=== PATIENT | female | born 1945 | race Caucasian/White ===

== ENCOUNTER 2016-09-10 06:51 | Observation (INO) | payer OTHER ==
[2016-09-10] VITALS (9 sets, daily range): BP systolic 132–164; BP diastolic 72–91; PULSE 64–80; RESP 16–18; TEMP 96.5–98.9; O2SAT 88–98
[~2016-09-10 06:51] MED LIST: ATOR40TA49 PO; CALCTAB23 PO; CENTTAB9 PO; DILTCD120 PO; ECOT81TA2 PO; GLIP5 PO; HYDR-3533 PO; INDO50 PO; LEVO.025 PO; LISI-587 PO; VENL150T14 PO; VITA-13 PO
[2016-09-10] MEDS ORDERED: LEVO25TA4 PO (07:18)
[2016-09-10] MEDS ORDERED: HYDR-3516 PO (07:18)
[2016-09-10] MEDS ORDERED: ASPI1TAB69 PO (07:18)
[2016-09-10] MEDS ORDERED: INDO50CA PO (07:18)
[2016-09-10] MEDS ORDERED: DILT120C9 PO (07:18)
[2016-09-10] MEDS ORDERED: GLIP5TAB8 PO (07:18)
[2016-09-10] MEDS ORDERED: ATOR40TA16 PO (07:18)
[2016-09-10] MEDS ORDERED: VENL150T PO (07:18)
[2016-09-10] MEDS ORDERED: LISI20TA3 PO (07:18)
[2016-09-10] MEDS ORDERED: ONDANSETRON HCL 4 MG/2 ML VIAL IV PUSH ONE (07:30)
[2016-09-10] MEDS ORDERED: MORPHINE SULFATE 4 MG/ML INJ IV PUSH ONE (07:30)
[2016-09-10] MEDS ORDERED: SODIUM CHLORIDE 0.9% FLUSH 10 ML FLUSH IVF PRN (07:30)
--- NOTE | 2016-09-10 07:54 | PD ---
HPI Chief Complaint: Fall Time Seen by Provider: 07:12 Travel History International Travel<30 days: No Contact w/Intl Traveler<30days: No Traveled to known affect area: No History of Present Illness HPI Patient is a 71 year old female who comes in after a fall last night complaining of pain to her right arm. She says she was in the kitchen getting a drink from the refrigerator and this is the last thing she remembers until she was on the ground. Per her , he heard her fall and immediately call out for help. She says she was feeling like her normal self prior to the event. She denies chest pain or SOB. She complains of severe pain to her entire right arm. She also reports hitting her face and having blood coming from her mouth and nose. 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) Hiatal Hernia: No Hypertension: Yes Immune Disorder: No Implanted Vascular Access Dvce: No Medical other: Yes (SKIN BREAKOUT ON ARMS) Musculoskeletal: Yes (ARTHRITIS) Neurologic: No Psychiatric: Yes (DEPRESSION) Reproductive: No Respiratory: No Immunizations Current: No Radiation Therapy: Yes Thyroid Disease: Yes (HYPOTHYROID) ?: Not Past Surgical History Abdominal Surgery: No AICD: No Body Medical Devices: LUMBAR HARDWARE Cardiac Surgery: No Ear Surgery: No Endocrine Surgery: No Eye Surgery: No Genitourinary Surgery: No Gynecologic Surgery: Yes (HYSTERECTOMY) Hysterectomy: Yes Joint Replacement: No Neurologic Surgery: Yes (LUMBAR FUSION) Oral Surgery: No Pacemaker: No Thoracic Surgery: No Other Surgery: Yes (right lumpectomy) Social History Alcohol Use: No Tobacco Use: Yes (1 PPD) Substance Use: No Allergies-Medications (Allergen,Severity, Reaction): Coded Allergies: Erythromycin (Verified Allergy, Severe, NAUSEA/VOMITING, 09/10/16) Reported Meds & Prescriptions Reported Meds & Active Scripts Active Reported Venlafaxine ER 24 HR (Venlafaxine HCl) 150 Mg Tab 150 Mg PO DAILY Lisinopril-Hctz 20-25 Mg Tab 1 Tab PO DAILY Levothyroxine (Levothyroxine Sodium) 25 Mcg Tab 25 Mcg PO DAILY Indomethacin 50 Mg Cap 50 Mg PO TID PRN Take with food, milk, or antacids to decrease stomach adverse effects. Hydrocodone-Acetaminophen 5-325 mg Tab 1 Tab PO Q4H PRN Glipizide 5 Mg Tab 2.5 Mg PO DAILY Take 30 minutes before a meal Diltiazem ER 12 HR (Diltiazem HCl) 120 Mg Caper 120 Mg PO DAILY NEB Atorvastatin (Atorvastatin Calcium) 40 Mg Tab 40 Mg PO HS Aspirin 81 Mg Tabdr 81 Mg PO DAILY Review of Systems Except as stated in HPI: all other systems reviewed are Neg General / Constitutional: No: Fever, Chills Eyes: No: Blurred Vision HENT: No: Headaches, Lightheadedness Cardiovascular: No: Chest Pain or Discomfort Respiratory: No: Shortness of Breath Gastrointestinal: No: Nausea, Vomiting, Abdominal Pain Musculoskeletal: Positive: Pain Skin: No Rash, No Change in Pigmentation Neurologic: Positive: Syncope, No: Weakness, Dizziness Physical Exam Narrative GENERAL: Awake and alert, no acute distress. SKIN: Focused skin assessment warm/dry. Abrasion to the right side of the nose. HEAD: Atraumatic. Normocephalic. EYES: Pupils equal and round. No scleral icterus. Extraocular movements intact. ENT: No septal hematoma. Mucous membranes pink and moist. NECK: Trachea midline. No JVD. No cervical spine tenderness. CARDIOVASCULAR: Regular rate and rhythm. No murmur appreciated. RESPIRATORY: No accessory muscle use. Clear to auscultation. Breath sounds equal bilaterally. GASTROINTESTINAL: Abdomen soft, non-tender, nondistended. MUSCULOSKELETAL: No obvious deformities. No clubbing. No cyanosis. 1+ edema bilateral lower extremities. Tender to palpation of the right shoulder, humerus , elbow, wrist. She is unwilling to move the right arm secondary to pain. Radial pulse and sensation intact. NEUROLOGICAL: Awake and alert. No obvious cranial nerve deficits. Motor grossly within normal limits. Normal speech. PSYCHIATRIC: Appropriate mood and affect; insight and judgment normal. Data Data Last Documented VS Vital Signs Date Time Temp Pulse Resp B/P Pulse Ox O2 Delivery O2 Flow Rate FiO2 09/10/16 09:03 74 18 156/76 96 Room Air 09/10/16 06:55 97.9 Orders Electrocardiogram (09/10/16 07:21) Complete Blood Count With Diff (09/10/16 07:21) Comprehensive Metabolic Panel (09/10/16 07:21) Troponin I (09/10/16 07:21) Act Partial Throm Time (Ptt) (09/10/16 07:21) Prothrombin Time / Inr (Pt) (09/10/16 07:21) Chest, Single Ap (09/10/16 07:21) Ct Brain W/O Iv Contrast(Rout) (09/10/16 07:21) Ct Cerv Spine W/O Contrast (09/10/16 07:21) Ecg Monitoring (09/10/16 07:21) Iv Access Insert/Monitor (09/10/16 07:21) Oximetry (09/10/16 07:21) Sodium Chloride 0.9% Flush (Ns Flush) (09/10/16 07:30) Wrist, Complete ([id number]) (09/10/16 ) Morphine Inj (Morphine Inj) (09/10/16 07:30) Ondansetron Inj (Zofran Inj) (09/10/16 07:30) Support Splint (09/10/16 07:59) Shoulder, Limited(2vws) (09/10/16 ) Elbow, One View (09/10/16 ) Mandatory Outpatient Referral (09/10/16 09:56) Consult Orthopedic (09/10/16 ) (Hub Use Only)Inp Phy Cons/Ref (09/10/16 ) Place In Observation (09/10/16 ) Vital Signs (Adult) Q4H (09/10/16 10:52) Activity Oob With Assistance (09/10/16 10:52) Bedside Glucose GRACIELA.AC&HS (09/10/16 10:52) Restaurant Area Manager / Telemetry .CONTINUOUS (09/10/16 10:52) Diet 1800 Ada Cons Carb (09/10/16 Lunch) Sodium Chloride 0.9% Flush (Ns Flush) (09/10/16 11:00) Sodium Chloride 0.9% Flush (Ns Flush) (09/10/16 21:00) Ondansetron Inj (Zofran Inj) (09/10/16 11:00) Comprehensive Metabolic Panel (09/11/16 06:00) Complete Blood Count With Diff (09/11/16 06:00) Pt Request For Service (09/10/16 10:52) Ot Request For Service (09/10/16 10:52) Scd Bilateral/Knee High GRACIELA.BID (09/10/16 10:52) Acetamin-Hydrocod 325-5 Mg (Gregory 5-325 (09/10/16 11:00) Acetamin-Hydrocod 325-7.5 Mg (Gregory 7.5 (09/10/16 11:00) Naloxone Inj (Narcan Inj) (09/10/16 11:00) Blood Glucose Goal (Criteria) (09/10/16 10:55) Hypoglycemia 70 Mg/Dl Or < (09/10/16 10:55) Notify Dr: Other (09/10/16 10:55) Dextrose 50% In Emma (Vial) Inj (D50w (Vi (09/10/16 11:00) Glucagon Inj (Glucagon Inj) (09/10/16 11:00) Insulin Aspart Supplemtl Scale (Novolog (09/10/16 11:00) Ct Shoulder W/O Contrast (09/10/16 ) Us Carotid Arteries Comp Bilat (09/10/16 ) Orthostatic Blood Pressure (09/10/16 10:55) Admit Order (Ed Use Only) (09/10/16 ) Labs Laboratory Tests Test 09/10/16 08:06 White Blood Count 13.4 TH/MM3 Red Blood Count 4.10 MIL/MM3 Hemoglobin 11.9 GM/DL Hematocrit 35.4 % Mean Corpuscular Volume 86.4 FL Mean Corpuscular Hemoglobin 29.0 PG Mean Corpuscular Hemoglobin 33.5 % Concent Red Cell Distribution Width 16.2 % Platelet Count 140 TH/MM3 Mean Platelet Volume 8.5 FL Neutrophils (%) (Auto) 92.2 % Lymphocytes (%) (Auto) 4.5 % Monocytes (%) (Auto) 3.1 % Eosinophils (%) (Auto) 0.0 % Basophils (%) (Auto) 0.2 % Neutrophils # (Auto) 12.4 TH/MM3 Lymphocytes # (Auto) 0.6 TH/MM3 Monocytes # (Auto) 0.4 TH/MM3 Eosinophils # (Auto) 0.0 TH/MM3 Basophils # (Auto) 0.0 TH/MM3 CBC Comment DIFF FINAL Differential Comment Prothrombin Time 10.6 SEC Prothromb Time International 1.0 RATIO Ratio Activated Partial 24.4 SEC Thromboplast Time Sodium Level 140 MEQ/L Potassium Level 3.6 MEQ/L Chloride Level 107 MEQ/L Carbon Dioxide Level 25.5 MEQ/L Anion Gap 8 MEQ/L Blood Urea Nitrogen 14 MG/DL Creatinine 0.95 MG/DL Estimat Glomerular Filtration 58 ML/MIN Rate Random Glucose 167 MG/DL Calcium Level 8.7 MG/DL Total Bilirubin 0.5 MG/DL Aspartate Amino Transf 20 U/L (AST/SGOT) Alanine Aminotransferase 20 U/L (ALT/SGPT) Alkaline Phosphatase 84 U/L Troponin I LESS THAN 0.02 NG/ML Total Protein 7.3 GM/DL Albumin 3.3 GM/DL [facility] Medical Decision Making Medical Screen Exam Complete: Yes Emergency Medical Condition: Yes Medical Record Reviewed: Yes Interpretation(s) ECG shows normal sinus rhythm at 78 with frequent PVCs. No ST elevation or depression. Differential Diagnosis Humeral fracture versus elbow fracture versus syncope versus electrolyte abnormality versus ACS Narrative Course Patient is a 71-year-old female who comes in after a fall. She is unsure why she fell, this is questionable syncope. Exam shows no neurologic abnormalities , patient is alert and oriented 4. She has severe tenderness to her right shoulder. IV established, labs sent, patient connected to the ekg monitor tech. ECG shows frequent PVCs, no other signs of ischemia or abnormalities. Labs show a white blood cell count of 13.4, other labs are within normal limits. CT head performed shows atrophy, read as possible normal pressure hydrocephalus. Patient denies any issues of incontinence or confusion. This is her second fall in the past 3 months. Symptoms not suggestive of NPH. XR of the shoulder shows fracture humerus. Given pain medicine, arm placed in a sling. Patient to be admitted for further management. Ortho paged, suggests CT shoulder and will manage from there. Likely outpatient surgery vs no intervention. Diagnosis Primary Impression: Humeral fracture Qualified Code: S42.294A - Other closed nondisplaced fracture of proximal end of right humerus, initial encounter Additional Impression: Syncope Qualified Code: R55 - Syncope, unspecified syncope type Admitting Information Admitting Physician Requests: Admit Patient Instructions: General Instructions Condition: Stable Leonarda Costa MD September 10, 2016 07:54
--- NOTE | 2016-09-10 08:09 | RADHPO ---
EXAM DATE/TIME: 09/10/2016 07:40 [facility] COMPARISON: No previous studies available for comparison. INDICATIONS : Fall, right wrist pain. MEDICAL HISTORY : None. SURGICAL HISTORY : None. ENCOUNTER: Initial ACUITY: 1 day PAIN SCORE: 5/10 LOCATION: Right wrist FINDINGS: Three views of the right wrist demonstrate no fracture or dislocation. Mineralization is decreased. T here is no significant arthropathy. No soft tissue abnormality or radiopaque foreign body is identifi ed. CONCLUSION: Undermineralized bones. No fracture is identified. Donta Mcgowan MD on September 10, 2016 at 8:06 Board Certified Radiologist. This report was verified electronically.
--- NOTE | 2016-09-10 08:10 | RADHPO ---
EXAM DATE/TIME: 09/10/2016 07:45 [facility] COMPARISON: No previous studies available for comparison. INDICATIONS : Fall, right shoulder pain. MEDICAL HISTORY : None. SURGICAL HISTORY : None. ENCOUNTER: Initial ACUITY: 1 day PAIN SCORE: 10/10 LOCATION: Right shoulder FINDINGS: 2 views of the right shoulder demonstrate a multipart fracture of the proximal humerus extending prim arily through the surgical neck. Fracture fragments are displaced. Fracture may extend into the gleno humeral joint. Acromioclavicular joint is intact. No soft tissue abnormality is seen. No acute right chest abnormality is identified. CONCLUSION: Multipart mildly displaced fracture of the right proximal humerus. Donta Mcgowan MD on September 10, 2016 at 8:08 Board Certified Radiologist. This report was verified electronically.
[2016-09-10 08:14] LABS: AUTOMATED NEUTROPHIL # 12.4 TH/MM3 (1.8-7.7); BASOPHIL % 0.2 % (0.0-2.0); HEMATOCRIT 35.4 % (35.0-46.0); HEMO FLAGS DIFF FINAL; LYMPH % 4.5 % (9.0-44.0); LYMPHOCYTE # 0.6 TH/MM3 (1.0-4.8); MEAN CELL VOLUME 86.4 FL (80.0-100.0); MEAN CORPUSCULAR HGB CONC 33.5 % (32.0-36.0); MONO % 3.1 % (0.0-8.0); NEUT % 92.2 % (16.0-70.0); PLATELET COUNT 140 TH/MM3 (150-450); RED CELL DISTRIBUTION WIDTH 16.2 % (11.6-17.2); WHITE BLOOD COUNT 13.4 TH/MM3 (4.0-11.0)
--- NOTE | 2016-09-10 08:15 | RADHPO ---
EXAM DATE/TIME: 09/10/2016 07:39 [facility] COMPARISON: CHEST SINGLE AP, January 15, 2016, 0:39. INDICATIONS : Fall, chest pain. MEDICAL HISTORY : None. SURGICAL HISTORY : None. ENCOUNTER: Initial ACUITY: 1 day PAIN SCORE: 1/10 LOCATION: Bilateral chest FINDINGS: Portable AP view of the chest demonstrates a normal-sized cardiac silhouette. No effusion, consolidat ion, or pneumothorax is visualized. The bones and soft tissues demonstrate no acute abnormality. CONCLUSION: No acute cardiopulmonary abnormality is identified. Donta Mcgowan MD on September 10, 2016 at 8:13 Board Certified Radiologist. This report was verified electronically.
--- NOTE | 2016-09-10 08:16 | RADHPO ---
EXAM DATE/TIME: 09/10/2016 07:46 [facility] COMPARISON: No previous studies available for comparison. INDICATIONS : Fall, right arm/shoulder pain. MEDICAL HISTORY : None. SURGICAL HISTORY : None. ENCOUNTER: Initial ACUITY: 1 day PAIN SCORE: 5/10 LOCATION: Right elbow to shoulder FINDINGS: 2 oblique views of the right elbow demonstrate no fracture or dislocation. The present of a joint eff usion cannot be assessed. No soft tissue abnormality or radiopaque foreign body is identified. CONCLUSION: No acute right elbow abnormality is identified on this two-view examination. If clinical suspicion re timur for an acute elbow abnormality consider standard 4 view examination. Donta Mcgowan MD on September 10, 2016 at 8:13 Board Certified Radiologist. This report was verified electronically.
[2016-09-10 08:22] LABS: CHLORIDE 107 MEQ/L (98-107); POTASSIUM 3.6 MEQ/L (3.5-5.1); SODIUM (NA) 140 MEQ/L (136-145)
[2016-09-10 08:25] LABS: ANION GAP 8 MEQ/L (5-15); BICARBONATE 25.5 MEQ/L (21.0-32.0); BLOOD UREA NITROGEN 14 MG/DL (7-18)
[2016-09-10 08:26] LABS: APTT (PATIENT) 24.4 SEC (24.3-30.1); PROTHROMBIN TIME - PATIENT 10.6 SEC (9.8-11.6)
[2016-09-10 08:28] LABS: ALT (GPT) 20 U/L (10-53); AST (GOT) 20 U/L (15-37); GLOMERULAR FILTRATION RATE 58 ML/MIN (>89)
[2016-09-10 08:29] LABS: TOTAL BILIRUBIN ADULT 0.5 MG/DL (0.2-1.0)
[2016-09-10 08:31] LABS: ALKALINE PHOSPHATASE 84 U/L (45-117)
--- NOTE | 2016-09-10 08:52 | RADHPO ---
EXAM DATE/TIME: 09/10/2016 08:13 [facility] COMPARISON: No previous studies available for comparison. INDICATIONS : Fell last night. Right sided pain. RADIATION DOSE: 65.76 CTDIvol (mGy) MEDICAL HISTORY : Hypothyroidism. Carcinoma, breast. Hypertension.Diabetes SURGICAL HISTORY : Hysterectomy. Right lumpectomy. Orthopedic surgery. ENCOUNTER: Initial ACUITY: 2 days PAIN SCALE: 8/10 LOCATION: Right cranial TECHNIQUE: Multiple contiguous axial images were obtained of the head. Using automated exposure control and adj ustment of the mA and/or kV according to patient size, radiation dose was kept as low as reasonably a chievable to obtain optimal diagnostic quality images. FINDINGS: CEREBRUM: Ventricular prominence somewhat out of proportion to the degree of cortical atrophy.. No evidence of midline shift, mass lesion, hemorrhage or acute infarction. No extra-axial fluid collections are se en. POSTERIOR FOSSA: The cerebellum and brainstem are intact. The 4th ventricle is midline. The cerebellopontine angle i s unremarkable. EXTRACRANIAL: The visualized portion of the orbits is intact. SKULL: The calvaria is intact. No evidence of skull fracture. CONCLUSION: Disproportionate ventricular prominence relative to the degree of cortical atrophy. In the appropriat e clinical setting, findings could be indicative of normal pressure hydrocephalus. Otherwise negative with no acute intracranial process, trauma or fracture. Rodrigo Granados MD on September 10, 2016 at 8:48 Board Certified Radiologist. This report was verified electronically.
--- NOTE | 2016-09-10 09:13 | RADHPO ---
EXAM DATE/TIME: 09/10/2016 08:13 [facility] COMPARISON: CT CERVICAL SPINE W/O CONTRAST, January 16, 2016, 16:53. INDICATIONS : Fell last night. Right sided pain. RADIATION DOSE: 25.91 CTDIvol (mGy) MEDICAL HISTORY : Hypothyroidism. Hypertension. Carcinoma, breast Diabetes. SURGICAL HISTORY : Hysterectomy. Right lumpectomy. Orthopedic surgery. ENCOUNTER: Initial ACUITY: 2 days PAIN SCALE: 8/10 LOCATION: Right neck TECHNIQUE: Volumetric scanning of the cervical spine was performed. Multiplanar reconstructions in the sagittal, coronal and oblique axial planes were performed. Using automated exposure control and adjustment o f the mA and/or kV according to patient size, radiation dose was kept as low as reasonably achievable to obtain optimal diagnostic quality images. FINDINGS: The sagittal reconstructions demonstrate normal alignment and normal prevertebral soft tissues. The d ens is intact and there is a normal atlantoaxial relationship. The axial images demonstrate that the vertebral bodies and posterior elements are intact. The soft ti ssues are within normal limits. There is no evidence of acute fracture or malalignment. CONCLUSION: Negative trauma CT. Joseph Randle MD on September 10, 2016 at 9:08 Board Certified Radiologist. This report was verified electronically.
[2016-09-10] MEDS ORDERED: NORC5TAB PO (09:30)
[2016-09-10] MEDS ORDERED: NALOXONE HCL 0.4 MG/ML AMP IV PRN (11:00)
[2016-09-10] MEDS ORDERED: ONDANSETRON HCL 4 MG/2 ML VIAL IVP PRN (11:00)
[2016-09-10] MEDS ORDERED: GLUCAGON 1 MG/ML VIAL OTHER PRN (11:00)
[2016-09-10] MEDS ORDERED: DEXTROSE 50% IN WATER 50 ML VIAL(D50) IV PRN (11:00)
[2016-09-10] MEDS: INSULIN ASPART SUPPLEMENTAL SCALE SQ SCH ×3 (11:00→21:00)
[2016-09-10] MEDS ORDERED: SODIUM CHLORIDE 0.9% FLUSH 10 ML FLUSH IV FLUSH PRN (11:00)
--- NOTE | 2016-09-10 11:34 | RADHPO ---
EXAM DATE/TIME: 09/10/2016 11:11 [facility] COMPARISON: SHOULDER RIGHT LTD (2VWS), September 10, 2016, 7:45. INDICATIONS : Abnormal xray. Acute fracture with pain and swelling.. RADIATION DOSE: 31.30 CTDIvol (mGy) MEDICAL HISTORY : Hypothyroidism. Hypertension. Carcinoma, breast. Diabetes. SURGICAL HISTORY : Hysterectomy. Right lumpectomy ENCOUNTER: Initial ACUITY: 2 days PAIN SCALE: 6/10 LOCATION: Right shoulder TECHNIQUE: Volumetric scanning of the shoulder was performed. Using automated exposure control and adjustment o f the mA and/or kV according to patient size, radiation dose was kept as low as reasonably achievable to obtain optimal diagnostic quality images. FINDINGS: Again noted is a moderately comminuted mildly impacted fracture deformity of the right humeral h ead and neck. There is minimal distraction of the fracture fragments with no significant angulation. There is surrounding soft tissue swelling. The glenoid is intact. The acromioclavicular joint is int act as well. The visualized portions of the ribs are intact. CONCLUSION: Right humeral head and neck fracture. Joseph Randle MD on September 10, 2016 at 11:29 Board Certified Radiologist. This report was verified electronically.
[2016-09-10] MEDS: ACETAMINOPHEN/HYDROcodone 325 MG/5 MG TAB PO PRN (11:46)
[2016-09-10] MEDS ORDERED: ACETAMINOPHEN/HYDROcodone 325 MG/7.5 MG TAB PO PRN (12:15)
--- NOTE | 2016-09-10 14:38 | EKG ---
Date Performed: 09/10/2016 Time Performed: 07:26:02 PTAGE: 71 years EKG: Sinus rhythm with frequent PVCs Patient is no longer in atrial fibrillation compared to prior tracing Abnormal EC G PREVIOUS TRACING : 01/16/2016 00.05 DOCTOR: Holland Nova Interpretating Date/Time 09/10/2016 14:38:43
--- NOTE | 2016-09-10 15:09 | HHI.HP ---
[facility] Savannah Johnson Do, MD Admission Diagnosis Syncope, shoulder fracture Diagnoses: (1) Syncope Diagnosis: Principal (2) Humeral fracture Diagnosis: Principal Travel History International Travel<30 Days: No Contact w/Intl Traveler <30 Da: No Traveled to Known Affected Are: No History of Present Illness Mrs. Ricardo is a 71 year old female. She is brought to the emergency department today secondary to experiencing a fall in which she sustained a right humerus fracture. The falls seem secondary to syncope. She reports that she got up to get some food out of the fridge felt dizzy and then fell. Orthopedic surgeon reviewed the images of fracture and inpatient repair is not planned acutely at this time. She is here for monitoring overnight and syncopal workup. Pain is controlled and seen in the ER. No other complaints. Her past history includes diabetes mellitus type 2, hypertension, A. fib, and a history of cholangiocarcinoma. Hyperlipidemia, anxiety, depression, and breast cancer in 2009 also exist. Past surgeries aren't able breast surgery in 2009, carpal tunnel in 1998, and low back surgery (fusion) in 1986. She is a smoker but without alcohol or drug abuse. Review of Systems Constitutional: DENIES: Fatigue, Fever, Chills Eyes: DENIES: Blurred vision, Diplopia Ears, nose, mouth, throat: DENIES: Hearing loss, Vertigo Respiratory: DENIES: Cough, Wheezing, Shortness of breath Cardiovascular: COMPLAINS OF: Syncope, DENIES: Chest pain, Palpitations Gastrointestinal: DENIES: Abdominal pain, Black stools, Bloody stools Musculoskeletal: COMPLAINS OF: Joint pain, DENIES: Muscle aches Integumentary: DENIES: Abnormal pigmentation Hematologic/lymphatic: DENIES: Bruising Immunologic/allergic: DENIES: Eczema Neurologic: DENIES: Abnormal gait Psychiatric: DENIES: Anxiety, Confusion Past Family Social History Past Medical History Diabetes mellitus type 2 Chronic low back pain Hypertension Hyperlipidemia Anxiety Depression Breast cancer history History of cholangiocarcinoma Past Surgical History Breast cancer surgery Carpal tunnel surgery Lower back spinal fusion Reported Medications Reported Meds & Active Scripts Active Reported Venlafaxine ER 24 HR (Venlafaxine HCl) 150 Mg Tab 150 Mg PO DAILY Lisinopril-Hctz 20-25 Mg Tab 1 Tab PO DAILY Levothyroxine (Levothyroxine Sodium) 25 Mcg Tab 25 Mcg PO DAILY Indomethacin 50 Mg Cap 50 Mg PO TID PRN Take with food, milk, or antacids to decrease stomach adverse effects. Hydrocodone-Acetaminophen 5-325 mg Tab 1 Tab PO Q4H PRN Glipizide 5 Mg Tab 2.5 Mg PO DAILY Take 30 minutes before a meal Diltiazem ER 12 HR (Diltiazem HCl) 120 Mg Caper 120 Mg PO DAILY NEB Atorvastatin (Atorvastatin Calcium) 40 Mg Tab 40 Mg PO HS Aspirin 81 Mg Tabdr 81 Mg PO DAILY Allergies: Coded Allergies: Erythromycin (Verified Allergy, Severe, NAUSEA/VOMITING, 09/10/16) Active Ordered Medications Administered Medications Medications (Trade) Dose Ordered Sig/Christian Route PRN Reason Start Time Stop Time Status Last Admin Dose Admin Acetaminophen/ Hydrocodone Bitart ([place] 5-325 Mg) 1 tab Q4H PRN PO PAIN SCALE 3 TO 5 09/10/16 11:00 09/10/16 11:46 Family History Skin cancer Social History No alcohol use No drug abuse Nicotine use Physical Exam Vital Signs Vital Signs Date Time Temp Pulse Resp B/P Pulse Ox O2 Delivery O2 Flow Rate FiO2 09/10/16 13:09 96.5 69 18 158/91 94 09/10/16 13:00 64 09/10/16 12:34 18 09/10/16 12:00 73 18 164/76 98 Room Air 09/10/16 09:03 74 18 156/76 96 Room Air 09/10/16 08:06 96 Room Air 09/10/16 06:55 97.9 76 16 141/72 96 Physical Exam GENERAL: This is a well-nourished, well-developed patient, in no apparent distress. SKIN: No rashes, ecchymoses or lesions. Cool and dry. HEAD: Atraumatic. Normocephalic. No temporal or scalp tenderness. EYES: Pupils equal round and reactive. Extraocular motions intact. No scleral icterus. No injection or drainage. ENT: Nose without bleeding, purulent drainage or septal hematoma. Throat without erythema, tonsillar hypertrophy or exudate. Uvula midline. Airway patent. NECK: Trachea midline. No JVD or lymphadenopathy. Supple, nontender, no meningeal signs. CARDIOVASCULAR: Regular rate and rhythm without murmurs, gallops, or rubs. RESPIRATORY: Clear to auscultation. Breath sounds equal bilaterally. No wheezes , rales, or rhonchi. GASTROINTESTINAL: Abdomen soft, non-tender, nondistended. No hepato-splenomegaly , or palpable masses. No guarding. MUSCULOSKELETAL: Extremities without clubbing, cyanosis, or edema. No joint tenderness, effusion, or edema noted. No calf tenderness. Negative Homans sign bilaterally. NEUROLOGICAL: Awake and alert. Cranial nerves II through XII intact. Motor and sensory grossly within normal limits. Five out of 5 muscle strength in all muscle groups. Normal speech. Laboratory Laboratory Tests Test 09/10/16 08:06 White Blood Count 13.4 Red Blood Count 4.10 Hemoglobin 11.9 Hematocrit 35.4 Mean Corpuscular Volume 86.4 Mean Corpuscular Hemoglobin 29.0 Mean Corpuscular Hemoglobin 33.5 Concent Red Cell Distribution Width 16.2 Platelet Count 140 Mean Platelet Volume 8.5 Neutrophils (%) (Auto) 92.2 Lymphocytes (%) (Auto) 4.5 Monocytes (%) (Auto) 3.1 Eosinophils (%) (Auto) 0.0 Basophils (%) (Auto) 0.2 Neutrophils # (Auto) 12.4 Lymphocytes # (Auto) 0.6 Monocytes # (Auto) 0.4 Eosinophils # (Auto) 0.0 Basophils # (Auto) 0.0 CBC Comment DIFF FINAL Differential Comment Prothrombin Time 10.6 Prothromb Time International 1.0 Ratio Activated Partial 24.4 Thromboplast Time Sodium Level 140 Potassium Level 3.6 Chloride Level 107 Carbon Dioxide Level 25.5 Anion Gap 8 Blood Urea Nitrogen 14 Creatinine 0.95 Estimat Glomerular Filtration 58 Rate Random Glucose 167 Calcium Level 8.7 Total Bilirubin 0.5 Aspartate Amino Transf 20 (AST/SGOT) Alanine Aminotransferase 20 (ALT/SGPT) Alkaline Phosphatase 84 Troponin I LESS THAN 0.02 Total Protein 7.3 Albumin 3.3 Result Diagram: 09/10/1680509/10/16805 Imaging Last Impressions Head CT 09/10/16 0721 Signed Impressions: Service Date/Time: Saturday, September 10, 2016 08:13 - CONCLUSION: Disproportionate ventricular prominence relative to the degree of cortical atrophy. In the appropriate clinical setting, findings could be indicative of normal pressure hydrocephalus. Otherwise negative with no acute intracranial process, trauma or fracture. Rodrigo Granados MD Chest X-Ray 09/10/16720 Signed Impressions: Service Date/Time: Saturday, September 10, 2016 07:39 - CONCLUSION: No acute cardiopulmonary abnormality is identified. Donta Mcgowan MD Cervical Spine CT 09/10/16720 Signed Impressions: Service Date/Time: Saturday, September 10, 2016 08:13 - CONCLUSION: Negative trauma CT. Joseph Randle MD Wrist X-Ray 09/10/16 Signed Impressions: Service Date/Time: Saturday, September 10, 2016 07:40 - CONCLUSION: Undermineralized bones. No fracture is identified. Donta Mcgowan MD Upper Extremity CT 09/10/16 Signed Impressions: Service Date/Time: Saturday, September 10, 2016 11:11 - CONCLUSION: Right humeral head and neck fracture. Joseph Randle MD Shoulder X-Ray 09/10/16 Signed Impressions: Service Date/Time: Saturday, September 10, 2016 07:45 - CONCLUSION: Multipart mildly displaced fracture of the right proximal humerus. Donta Mcgowan MD Elbow X-Ray 09/10/16 Signed Impressions: Service Date/Time: Saturday, September 10, 2016 07:46 - CONCLUSION: No acute right elbow abnormality is identified on this two-view examination. If clinical suspicion remains for an acute elbow abnormality consider standard 4 view examination. Donta Mcgowan MD Assessment and Plan Problem List: (1) Humeral fracture ICD Code: S42.309A Status: Acute (2) Syncope ICD Code: R55 Status: Acute (3) Hypertension ICD Code: I10 Status: Acute (4) Paroxysmal atrial fibrillation ICD Code: I48.0 Status: Acute (5) Chest pain ICD Code: R07.9 Status: Acute (6) Pericardial effusion ICD Code: I31.3 Status: Acute (7) Cholangiocarcinoma ICD Code: C22.1 Status: Acute Assessment and Plan Assessment and plan 71-year-old female admitted with syncope and a right humerus fracture Right humerus fracture Ortho surgeon consulted No immediate plan for acute surgery Follow Ortho surgeon as an outpatient Syncope Evaluate bilateral carotid arteries with ultrasound Orthostatic hypotension check Following telemetry Diabetes mellitus type 2 Diabetic diet Follow blood sugars Insulin sliding scale Hypertension Continue home blood pressure treatments Follow blood pressure Adjust if needed Hyperlipidemia Continue current treatment Follow us an outpatient DVT prophylaxis SCDs Avoid blood thinners right now secondary to acute injury Problem Qualifiers (1) Syncope: Qualified Code: R55 - Syncope, unspecified syncope type (2) Humeral fracture: Qualified Code: S42.294A - Other closed nondisplaced fracture of proximal end of right humerus, initial encounter Juarez Gandhi MD September 10, 2016 3:09 pm
--- NOTE | 2016-09-10 17:03 | RADHPO ---
EXAM DATE/TIME: 09/10/2016 15:37 [place] COMPARISON: No previous studies available for comparison. INDICATIONS : Syncope. MEDICAL HISTORY : Hypercholesterolemia. Hypertension. Carcinoma, breast. Diverticulosis. Hypothyroidism. Arthritis. Lila betes type 2. SURGICAL HISTORY : Hysterectomy. Lumbar fusion. Right lumpectomy. ENCOUNTER: Initial ACUITY: 1 day PAIN SCORE: 6/10 LOCATION: Bilateral neck PEAK SYSTOLIC VELOCITIES (cm/sec): ICA/CCA RATIO: Right: 0.7 Left: 0.9 ICA: Right: 84 Left: 92 CCA: Right: 124 Left: 102 ECA: Right: 97 Left: 84 VERTEBRAL: Right: 53 antegrade Left: 72 antegrade Elevated flow velocities and ICA/CCA ratios have been found to correlate with increased degrees of vessel stenosis, calculated as percentage of diameter relative to a normal segment of distal ICA/CCA FINDINGS: RIGHT CAROTID: No significant stenosis is visualized. Minimal plaque is present. The waveforms are within normal vogel its. LEFT CAROTID: No significant stenosis is visualized. Minimal plaque is present. The waveforms are within normal li mits. VERTEBRAL ARTERIES: Antegrade flow is seen in both vertebral arteries. MISCELLANEOUS: There is a complex cystic structure in the left lobe of the thyroid gland. This measures 2.3 x 2.2 x 2.6 cm. CONCLUSION: Minimal plaque with no evidence of stenosis. Cystic nodule in the left lobe of the th yroid. Joseph Randle MD on September 10, 2016 at 16:59 Board Certified Radiologist. This report was verified electronically.
--- NOTE | 2016-09-10 18:25 | PD.CONS ---
cc: Wilfred Kelley MD [facility] Service Orthopedic Surgeons Consult Requested By Dr. Costa Reason for Consult right proximal humerus fracture Primary Care Physician Savannah Johnson Do, MD Admission Diagnosis Syncope, shoulder fracture Diagnoses: (1) Humeral fracture (2) Syncope (3) Hypertension (4) Paroxysmal atrial fibrillation (5) Chest pain (6) Pericardial effusion (7) Cholangiocarcinoma Chief Complaint: right shoulder pain History of Present Illness Mrs. Ricardo is a 71 year old female. She is brought to the emergency department today secondary to experiencing a fall in which she sustained a right humerus fracture. The falls seem secondary to syncope. She reports that she got up to get some food out of the fridge felt dizzy and then fell. X-rays and the CT scan were completed. This revealed a comminuted impacted minimally displaced fracture of the right proximal humerus. She was admitted to the medical service. She is here for monitoring overnight and syncopal workup. Pain is controlled and seen in the ER. No other complaints. Her past history includes diabetes mellitus type 2, hypertension, A. fib, and a history of cholangiocarcinoma. Hyperlipidemia, anxiety, depression, and breast cancer in 2009 also exist. Past surgeries aren't able breast surgery in 2009, carpal tunnel in 1998, and low back surgery (fusion) in 1986. She is a smoker but without alcohol or drug abuse. Review of Systems Reviewed and well outlined in the medical record Past Family Social History Past Medical History Diabetes mellitus type 2 Chronic low back pain Hypertension Hyperlipidemia Anxiety Depression Breast cancer history History of cholangiocarcinoma Past Surgical History Breast cancer surgery Carpal tunnel surgery Lower back spinal fusion Allergies: Coded Allergies: Erythromycin (Verified Allergy, Severe, NAUSEA/VOMITING, 09/10/16) Active Ordered Medications Current Medications Medications (Trade) Dose Ordered Sig/Christian Route Start Time Stop Time Status Last Admin (NS Flush) 2 ml UNSCH PRN IVF 09/10/16 07:30 (NS Flush) 2 ml UNSCH PRN IV FLUSH 09/10/16 11:00 (NS Flush) 2 ml BID IV FLUSH 09/10/16 21:00 (Zofran Inj) 4 mg Q6H PRN IVP 09/10/16 11:00 ([place] 5-325 Mg) 1 tab Q4H PRN PO 09/10/16 11:00 09/10/16 11:46 ([place] 7.5-325 Mg) 1 tab Q4H PRN PO 09/10/16 11:00 (Narcan Inj) 0.4 mg UNSCH PRN IV 09/10/16 11:00 (D50w (Vial) Inj) 50 ml UNSCH PRN IV 09/10/16 11:00 (Glucagon Inj) 1 mg UNSCH PRN OTHER 09/10/16 11:00 (Lipitor) 40 mg HS PO 09/10/16 21:00 (Synthroid) 25 mcg DAILY PO 09/11/16 09:00 (Effexor Xr) 150 mg DAILY PO 09/11/16 09:00 (Cardizem Cd) 120 mg DAILY PO 09/11/16 09:00 ([place] 7.5-325 Mg) 1 tab Q4H PRN PO 09/10/16 12:15 (Prinivil) 20 mg DAILY PO 09/11/16 09:00 (Hydrodiuril) 25 mg DAILY PO 09/11/16 09:00 Reported Meds & Active Scripts Active Reported Venlafaxine ER 24 HR (Venlafaxine HCl) 150 Mg Tab 150 Mg PO DAILY Lisinopril-Hctz 20-25 Mg Tab 1 Tab PO DAILY Levothyroxine (Levothyroxine Sodium) 25 Mcg Tab 25 Mcg PO DAILY Indomethacin 50 Mg Cap 50 Mg PO TID PRN Take with food, milk, or antacids to decrease stomach adverse effects. Hydrocodone-Acetaminophen 5-325 mg Tab 1 Tab PO Q4H PRN Glipizide 5 Mg Tab 2.5 Mg PO DAILY Take 30 minutes before a meal Diltiazem ER 12 HR (Diltiazem HCl) 120 Mg Caper 120 Mg PO DAILY NEB Atorvastatin (Atorvastatin Calcium) 40 Mg Tab 40 Mg PO HS Aspirin 81 Mg Tabdr 81 Mg PO DAILY Family History Skin cancer Social History No alcohol use No drug abuse Nicotine use Physical Exam Vital Signs Vital Signs Date Time Temp Pulse Resp B/P Pulse Ox O2 Delivery O2 Flow Rate FiO2 09/10/16 16:55 97.5 72 18 145/75 94 137/77 132/77 09/10/16 13:09 96.5 69 18 158/91 94 09/10/16 13:00 64 09/10/16 12:34 18 09/10/16 12:00 73 18 164/76 98 Room Air 09/10/16 09:03 74 18 156/76 96 Room Air 09/10/16 08:06 96 Room Air 09/10/16 06:55 97.9 76 16 141/72 96 Physical Exam The right upper extremity is in a sling. There is mild swelling about the shoulder. There is pain with any attempted range of motion. She is able to move her fingers freely and has good capillary refill and sensation. There are no other localizing signs of extremity injury. Laboratory Laboratory Tests Test 09/10/16 08:06 White Blood Count 13.4 Red Blood Count 4.10 Hemoglobin 11.9 Hematocrit 35.4 Mean Corpuscular Volume 86.4 Mean Corpuscular Hemoglobin 29.0 Mean Corpuscular Hemoglobin 33.5 Concent Red Cell Distribution Width 16.2 Platelet Count 140 Mean Platelet Volume 8.5 Neutrophils (%) (Auto) 92.2 Lymphocytes (%) (Auto) 4.5 Monocytes (%) (Auto) 3.1 Eosinophils (%) (Auto) 0.0 Basophils (%) (Auto) 0.2 Neutrophils # (Auto) 12.4 Lymphocytes # (Auto) 0.6 Monocytes # (Auto) 0.4 Eosinophils # (Auto) 0.0 Basophils # (Auto) 0.0 CBC Comment DIFF FINAL Differential Comment Prothrombin Time 10.6 Prothromb Time International 1.0 Ratio Activated Partial 24.4 Thromboplast Time Sodium Level 140 Potassium Level 3.6 Chloride Level 107 Carbon Dioxide Level 25.5 Anion Gap 8 Blood Urea Nitrogen 14 Creatinine 0.95 Estimat Glomerular Filtration 58 Rate Random Glucose 167 Calcium Level 8.7 Total Bilirubin 0.5 Aspartate Amino Transf 20 (AST/SGOT) Alanine Aminotransferase 20 (ALT/SGPT) Alkaline Phosphatase 84 Troponin I LESS THAN 0.02 Total Protein 7.3 Albumin 3.3 Result Diagram: 09/10/1680509/10/16805 Imaging Last [address] 09/10/16 07 Signed Impressions: Service Date/Time: Saturday, September 10, 2016 08:13 - CONCLUSION: Disproportionate ventricular prominence relative to the degree of cortical atrophy. In the appropriate clinical setting, findings could be indicative of normal pressure hydrocephalus. Otherwise negative with no acute intracranial process, trauma or fracture. Rodrigo Granados MD Chest X-Ray 09/10/16720 Signed Impressions: Service Date/Time: Saturday, September 10, 2016 07:39 - CONCLUSION: No acute cardiopulmonary abnormality is identified. Donta Mcgowan MD Cervical Spine CT 09/10/16720 Signed Impressions: Service Date/Time: Saturday, September 10, 2016 08:13 - CONCLUSION: Negative trauma CT. Joseph Randle MD Wrist X-Ray 09/10/16 Signed Impressions: Service Date/Time: Saturday, September 10, 2016 07:40 - CONCLUSION: Undermineralized bones. No fracture is identified. Donta Mcgowan MD Upper Extremity CT 09/10/16 Signed Impressions: Service Date/Time: Saturday, September 10, 2016 11:11 - CONCLUSION: Right humeral head and neck fracture. Joseph Randle MD Shoulder X-Ray 09/10/16 Signed Impressions: Service Date/Time: Saturday, September 10, 2016 07:45 - CONCLUSION: Multipart mildly displaced fracture of the right proximal humerus. Donta Mcgowan MD Elbow X-Ray 09/10/16 Signed Impressions: Service Date/Time: Saturday, September 10, 2016 07:46 - CONCLUSION: No acute right elbow abnormality is identified on this two-view examination. If clinical suspicion remains for an acute elbow abnormality consider standard 4 view examination. Donta Mcgowan MD Carotid Artery Ultrasound 09/10/16 Signed Impressions: Service Date/Time: Saturday, September 10, 2016 15:37 - CONCLUSION: Minimal plaque with no evidence of stenosis. Cystic nodule in the left lobe of the thyroid. Joseph Randle MD Assessment & Plan Problem List: (1) Closed fracture of right proximal humerus (2) Hypertension (3) Paroxysmal atrial fibrillation (4) Syncope (5) Cholangiocarcinoma Assessment and Plan The findings were discussed. The x-ray and CT findings were reviewed. The patient's fracture is impacted and comminuted and minimally displaced. Given her age and other medical issues as well as the fracture pattern, recommendations are for nonoperative management. If the patient does have persistent pain or a nonunion which is unlikely, then surgical treatment could be entertained in the future. This most likely would require arthroplasty. She understands that although the fracture should heal, she potentially would have limited shoulder function with regards to motion. As her healing progresses, she will progress range of motion exercises and most likely would benefit from physical therapy. She can be discharged from an orthopedic standpoint with follow-up in 7-10 days. Wilfred Kelley MD September 10, 2016 18:25
[2016-09-10] MEDS: ACETAMINOPHEN/HYDROcodone 325 MG/7.5 MG TAB PO PRN (19:09)
[2016-09-10] MEDS: SODIUM CHLORIDE 0.9% FLUSH 10 ML FLUSH IV FLUSH SCH (21:05)
[2016-09-10] MEDS: ATORVASTATIN 40 MG TAB PO SCH (21:05)
[2016-09-11] VITALS (9 sets, daily range): BP systolic 112–138; BP diastolic 69–79; PULSE 72–79; RESP 18–19; TEMP 97.1–98.2; O2SAT 90–97
[2016-09-11] MEDS: ACETAMINOPHEN/HYDROcodone 325 MG/7.5 MG TAB PO PRN ×4 (00:15→20:59)
[2016-09-11] MEDS: INSULIN ASPART SUPPLEMENTAL SCALE SQ SCH ×4 (06:49→21:00)
[2016-09-11 07:29] LABS: CHLORIDE 107 MEQ/L (98-107); SODIUM (NA) 142 MEQ/L (136-145)
[2016-09-11 07:30] LABS: AUTOMATED NEUTROPHIL # 7.6 TH/MM3 (1.8-7.7); BASOPHIL # 0.1 TH/MM3 (0-0.2); BASOPHIL % 0.6 % (0.0-2.0); EOSINOPHIL % 0.5 % (0.0-4.0); HEMATOCRIT 35.9 % (35.0-46.0); HEMO FLAGS DIFF FINAL; LYMPH % 10.4 % (9.0-44.0); MEAN CELL VOLUME 88.5 FL (80.0-100.0); MEAN CORPUSCULAR HEMOGLOBIN 28.3 PG (27.0-34.0); MONO % 6.2 % (0.0-8.0); NEUT % 82.3 % (16.0-70.0); PLATELET COUNT 129 TH/MM3 (150-450); RED BLOOD COUNT 4.06 MIL/MM3 (4.00-5.30); RED CELL DISTRIBUTION WIDTH 17.2 % (11.6-17.2); WHITE BLOOD COUNT 9.3 TH/MM3 (4.0-11.0)
[2016-09-11 07:33] LABS: ANION GAP 7 MEQ/L (5-15); BICARBONATE 28.3 MEQ/L (21.0-32.0)
[2016-09-11 07:34] LABS: BLOOD UREA NITROGEN 15 MG/DL (7-18)
[2016-09-11 07:36] LABS: AST (GOT) 16 U/L (15-37)
[2016-09-11 07:37] LABS: ALT (GPT) 20 U/L (10-53); GLOMERULAR FILTRATION RATE 73 ML/MIN (>89)
[2016-09-11 07:38] LABS: ALKALINE PHOSPHATASE 80 U/L (45-117); TOTAL BILIRUBIN ADULT 0.7 MG/DL (0.2-1.0)
[2016-09-11] MEDS ORDERED: NON-FORMULARY DRUG (Lisinopril-Hctz 1 TAB) PO SCH (09:00)
[2016-09-11] MEDS: LISINOPRIL 20 MG TAB PO SCH (09:43)
[2016-09-11] MEDS: SODIUM CHLORIDE 0.9% FLUSH 10 ML FLUSH IV FLUSH SCH ×2 (09:43→20:59)
[2016-09-11] MEDS: HYDROCHLOROTHIAZIDE 25 MG TAB PO SCH (09:43)
[2016-09-11] MEDS: LEVOTHYROXINE SODIUM 25 MCG TAB PO SCH (09:43)
[2016-09-11] MEDS: DILTIAZEM-CD 120 MG CAP ER PO SCH (09:43)
[2016-09-11] MEDS: VENLAFAXINE HCL XR 75 MG CAP PO SCH (09:43)
--- NOTE | 2016-09-11 11:37 | HHI.FF ---
Face to Face Verification Diagnosis: (1) Closed fracture of right proximal humerus (2) Syncope (3) Paroxysmal atrial fibrillation Physical Therapy Order: Evaluate and Treat Home Health Nursing Order: Nursing assessment with vital signs Instructions: Home health nursing for medication management. I have seen patient Hien Ricardo on 09/11/16. My clinical findings support the need for the requested home health care services because: Deconditioned w/ increased weakness I certify that my clinical findings support that this patient is homebound because: Unable to use public transportation Jamey Salomon MD September 11, 2016 11:37
[2016-09-11] MEDS ORDERED: WALKER/FOLDING1 MIS (11:39)
--- NOTE | 2016-09-11 11:48 | HHI.PR ---
Subjective Remarks Patient seen this morning. Denies any chest pain or shortness of breath. Denies any palpitations. She reports that syncope has been happening over the past several months, happens upon standing. Discussed interventions, such as sitting on edge of bed prior to standing, standing for 30 seconds prior to walking. Objective Vital Signs Date Time Temp Pulse Resp B/P Pulse Ox O2 Delivery O2 Flow Rate FiO2 09/11/16 09:45 18 09/11/16 08:45 98.1 79 19 138/79 97 09/11/16 04:00 98.2 78 18 124/78 90 09/11/16 00:00 97.4 75 18 119/70 90 09/10/16 23:40 88 21 09/10/16 20:00 98.9 80 18 138/73 94 09/10/16 16:55 97.5 72 18 145/75 94 137/77 132/77 09/10/16 13:09 96.5 69 18 158/91 94 09/10/16 13:00 64 09/10/16 12:34 18 09/10/16 12:00 73 18 164/76 98 Room Air I/O 09/10/16 09/10/16 09/10/16 09/11/16 09/11/16 09/11/16 07:00 15:00 23:00 07:00 15:00 23:00 Intake Total 400 ml 240 ml 460 ml Balance 400 ml 240 ml 460 ml Intake Oral 400 ml 240 ml 460 ml # Voids 2 1 2 # Bowel Movements 0 0 Result Diagram: 09/11/1670809/11/16708 Imaging Last Impressions Head CT 09/10/16720 Signed Impressions: Service Date/Time: Saturday, September 10, 2016 08:13 - CONCLUSION: Disproportionate ventricular prominence relative to the degree of cortical atrophy. In the appropriate clinical setting, findings could be indicative of normal pressure hydrocephalus. Otherwise negative with no acute intracranial process, trauma or fracture. Rodrigo Granados MD Chest X-Ray 09/10/16720 Signed Impressions: Service Date/Time: Saturday, September 10, 2016 07:39 - CONCLUSION: No acute cardiopulmonary abnormality is identified. Donta Mcgowan MD Cervical Spine CT 09/10/16720 Signed Impressions: Service Date/Time: Saturday, September 10, 2016 08:13 - CONCLUSION: Negative trauma CT. Joseph Randle MD Wrist X-Ray 09/10/16 Signed Impressions: Service Date/Time: Saturday, September 10, 2016 07:40 - CONCLUSION: Undermineralized bones. No fracture is identified. Donta Mcgowan MD Upper Extremity CT 09/10/16 Signed Impressions: Service Date/Time: Saturday, September 10, 2016 11:11 - CONCLUSION: Right humeral head and neck fracture. Joseph Randle MD Shoulder X-Ray 09/10/16 Signed Impressions: Service Date/Time: Saturday, September 10, 2016 07:45 - CONCLUSION: Multipart mildly displaced fracture of the right proximal humerus. Donta Mcgowan MD Elbow X-Ray 09/10/16 Signed Impressions: Service Date/Time: Saturday, September 10, 2016 07:46 - CONCLUSION: No acute right elbow abnormality is identified on this two-view examination. If clinical suspicion remains for an acute elbow abnormality consider standard 4 view examination. Donta Mcgowan MD Carotid Artery Ultrasound 09/10/16 Signed Impressions: Service Date/Time: Saturday, September 10, 2016 15:37 - CONCLUSION: Minimal plaque with no evidence of stenosis. Cystic nodule in the left lobe of the thyroid. Joseph Randle MD Objective Remarks GENERAL: Patient sitting up in chair at bedside. Appears comfortable. SKIN: Warm and dry. HEAD: Normocephalic. EYES: No scleral icterus. No injection or drainage. NECK: Supple, trachea midline. No JVD. CARDIOVASCULAR: Regular rate and rhythm without murmurs, gallops, or rubs. RESPIRATORY: Breath sounds equal bilaterally. No accessory muscle use. GASTROINTESTINAL: Abdomen soft, non-tender, nondistended. MUSCULOSKELETAL: No cyanosis, or edema. BACK: Nontender without obvious deformity. No CVA tenderness. A/P Assessment and Plan 71-year-old female admitted with syncope and a right humerus fracture //Right humerus fracture //Status syncopal fall. -CT head and neck with no acute findings. -Nonoperative management as per orthopedics. Pain control. Sling. -We'll need follow-up with orthopedics as outpatient. //Syncope - ultrasound bilateral carotids with no evidence of stenosis -Orthostatic blood pressure negative -Patient uses bilateral lower extremity compression stockings, however was not wearing them at the time of her syncope at home. -Multiple PVCs versus PACs with aberrancy. EKG on admission in sinus. Echocardiogram pending. //possible NPH. -As seen on CT head. PT Reports the patient needs a lot of prompting. -Consult neurology. //Incidental finding of thyroid cyst. Follow-up PCP outpatient. TSH normal in December 2015. //Diabetes mellitus type 2 -Diabetic diet -Blood sugars acceptable. Continue to monitor. -Insulin sliding scale //Hypertension Continue home blood pressure treatments Follow blood pressure Adjust if needed //Hyperlipidemia Continue current treatment Follow up PCP as outpatient. //DVT prophylaxis SCDs Avoid blood thinners right now secondary to acute injury Discharge Planning Pending echocardiogram. -Inpatient rehabilitation/SNF, versus home with home health. Appreciate physical therapy assistance. -Need follow-up with orthopedics, as well as cardiology as outpatient. Jamey Salomon MD September 11, 2016 11:48
[2016-09-11] MEDS: ACETAMINOPHEN/HYDROcodone 325 MG/5 MG TAB PO PRN (15:31)
--- NOTE | 2016-09-11 16:07 | PD.CONS ---
History of Present Illness Service Neurology Consult Requested By medical Reason for Consult nph Primary Care Physician Savannah Johnson Do, MD History of Present Illness 71 year old female with right humerus fracture, under medical evaluation for syncope as well for possible cause of falls. neurology was consulted after ct brain imaging findings of possible nph. currently, the pt c/o of pain and wanting more pain meds for her rt arm. she states that she can lose her balance. has chronic bladder incontinence but attributes this to previous surgery? she lives with her spouse. she feels her memory is not as sharp as it used to be. Review of Systems as above and admit hp Past Family Social History Past Medical History Diabetes mellitus type 2 Chronic low back pain Hypertension Hyperlipidemia Anxiety Depression Breast cancer history History of cholangiocarcinoma Past Surgical History Breast cancer surgery Carpal tunnel surgery Lower back spinal fusion Reported Medications Reported Meds & Active Scripts Active Reported Venlafaxine ER 24 HR (Venlafaxine HCl) 150 Mg Tab 150 Mg PO DAILY Lisinopril-Hctz 20-25 Mg Tab 1 Tab PO DAILY Levothyroxine (Levothyroxine Sodium) 25 Mcg Tab 25 Mcg PO DAILY Indomethacin 50 Mg Cap 50 Mg PO TID PRN Take with food, milk, or antacids to decrease stomach adverse effects. Hydrocodone-Acetaminophen 5-325 mg Tab 1 Tab PO Q4H PRN Glipizide 5 Mg Tab 2.5 Mg PO DAILY Take 30 minutes before a meal Diltiazem ER 12 HR (Diltiazem HCl) 120 Mg Caper 120 Mg PO DAILY NEB Atorvastatin (Atorvastatin Calcium) 40 Mg Tab 40 Mg PO HS Aspirin 81 Mg Tabdr 81 Mg PO DAILY Allergies: Coded Allergies: Erythromycin (Verified Allergy, Severe, NAUSEA/VOMITING, 09/10/16) Family History Skin cancer Social History No alcohol use No drug abuse Nicotine use Review of Systems All other ROS: ROS reviewed as documented in chart Past Family Social History Allergies: Coded Allergies: Erythromycin (Verified Allergy, Severe, NAUSEA/VOMITING, 09/10/16) Active Ordered Medications Current Medications Medications (Trade) Dose Ordered Sig/Christian Route Start Time Stop Time Status Last Admin (NS Flush) 2 ml UNSCH PRN IVF 09/10/16 07:30 (NS Flush) 2 ml UNSCH PRN IV FLUSH 09/10/16 11:00 (NS Flush) 2 ml BID IV FLUSH 09/10/16 21:00 09/11/16 09:43 (Zofran Inj) 4 mg Q6H PRN IVP 09/10/16 11:00 ([place] 5-325 Mg) 1 tab Q4H PRN PO 09/10/16 11:00 09/11/16 15:31 ([place] 7.5-325 Mg) 1 tab Q4H PRN PO 09/10/16 11:00 09/11/16 09:44 (Narcan Inj) 0.4 mg UNSCH PRN IV 09/10/16 11:00 (D50w (Vial) Inj) 50 ml UNSCH PRN IV 09/10/16 11:00 (Glucagon Inj) 1 mg UNSCH PRN OTHER 09/10/16 11:00 (Lipitor) 40 mg HS PO 09/10/16 21:00 09/10/16 21:05 (Synthroid) 25 mcg DAILY PO 09/11/16 09:00 09/11/16 09:43 (Effexor Xr) 150 mg DAILY PO 09/11/16 09:00 09/11/16 09:43 (Cardizem Cd) 120 mg DAILY PO 09/11/16 09:00 09/11/16 09:43 ([place] 7.5-325 Mg) 1 tab Q4H PRN PO 09/10/16 12:15 (Prinivil) 20 mg DAILY PO 09/11/16 09:00 09/11/16 09:43 (Hydrodiuril) 25 mg DAILY PO 09/11/16 09:00 09/11/16 09:43 Exam I&O / VS 09/10/16 09/10/16 09/11/16 15:00 23:00 07:00 Intake Total 400 ml 240 ml 460 ml Balance 400 ml 240 ml 460 ml Intake Oral 400 ml 240 ml 460 ml # Voids 2 1 2 # Bowel Movements 0 0 Vital Signs Date Time Temp Pulse Resp B/P Pulse Ox O2 Delivery O2 Flow Rate FiO2 09/11/16 12:37 97.1 72 18 117/78 97 09/11/16 10:45 18 09/11/16 08:45 98.1 79 19 138/79 97 09/11/16 08:00 95 Nasal Cannula 2.00 09/11/16 04:00 98.2 78 18 124/78 90 09/11/16 00:00 97.4 75 18 119/70 90 09/10/16 23:40 88 21 09/10/16 20:00 98.9 80 18 138/73 94 09/10/16 16:55 97.5 72 18 145/75 94 137/77 132/77 General: Alert and Oriented, No acute distress Eye: EOMI Respiratory: Non-labored respirations Neurologic: Alert, Oriented Psychiatric: Cooperative, Appropriate mood & affect Exam Comments ox 3. follows, in pain and this appears to be her focus. 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 this is best evaluated in the outpatient setting when all acute medical problems have been stabilized, including limited use of opiates. she can be followed up with us after discharge in a few weeks for formal cognitive testing and better gait assessment. sign off (2) Hypertension (3) Syncope Plan: under investigation; possibly cardiac Problem Qualifiers (1) Hypertension: Qualified Code: I10 - Essential hypertension (2) Syncope: Qualified Code: R55 - Syncope, unspecified syncope type Ronaldo Manzo MD September 11, 2016 16:07
[2016-09-11] MEDS: NICOTINE 21 MG/24 HR PATCH T-DERMAL SCH (16:42)
[2016-09-11] MEDS: ATORVASTATIN 40 MG TAB PO SCH (20:58)
[2016-09-12] VITALS: BP 130/95; PULSE 84; RESP 18; TEMP 97.9; O2SAT 96
[2016-09-12] MEDS: ACETAMINOPHEN/HYDROcodone 325 MG/7.5 MG TAB PO PRN (03:40)
[2016-09-12 04:00] VITALS: BP 136/75; PULSE 74; RESP 20; TEMP 97.5; O2SAT 94
[2016-09-12] MEDS: INSULIN ASPART SUPPLEMENTAL SCALE SQ SCH (05:44)
[2016-09-12 08:00] VITALS: BP 137/73; PULSE 73; RESP 20; TEMP 98.2; O2SAT 95
[2016-09-12] MEDS: LISINOPRIL 20 MG TAB PO SCH (08:47)
[2016-09-12] MEDS: HYDROCHLOROTHIAZIDE 25 MG TAB PO SCH (08:47)
[2016-09-12] MEDS: DILTIAZEM-CD 120 MG CAP ER PO SCH (08:47)
[2016-09-12] MEDS: VENLAFAXINE HCL XR 75 MG CAP PO SCH (08:47)
[2016-09-12] MEDS: LEVOTHYROXINE SODIUM 25 MCG TAB PO SCH (08:47)
[2016-09-12] MEDS: SODIUM CHLORIDE 0.9% FLUSH 10 ML FLUSH IV FLUSH SCH (08:48)
[2016-09-12] MEDS: NICOTINE 21 MG/24 HR PATCH T-DERMAL SCH (08:48)
[2016-09-12] MEDS ORDERED: REMOVE OLD PATCH T-DERMAL SCH (09:00)
--- NOTE | 2016-09-12 09:08 | HHI.FF ---
Face to Face Verification Diagnosis: (1) Syncope (2) Closed fracture of right proximal humerus Physical Therapy Order: Evaluate and Treat Occupational Therapy Order: Evaluate and Treat I have seen patient Hien Ricardo on 09/12/16. My clinical findings support the need for the requested home health care services because: Deconditioned w/ increased weakness Limited ability to care for self High risk of falls I certify that my clinical findings support that this patient is homebound because: Unsteady gait/balance Unsafe to leave home unassisted Unable to use public transportation Juarez Gandhi MD September 12, 2016 9:08 am
--- NOTE | 2016-09-12 09:14 | HHI.DS ---
Discharge Summary Admission Date September 10, 2016 at 11:17 am Discharge Date: September 12, 2016 Admitting Diagnosis Syncope, shoulder fracture (1) Humeral fracture ICD Code: S42.309A (2) Syncope ICD Code: R55 Diagnosis: Principal (3) Hypertension ICD Code: I10 Diagnosis: Secondary (4) Paroxysmal atrial fibrillation ICD Code: I48.0 Diagnosis: Secondary (5) Chest pain ICD Code: R07.9 Diagnosis: Secondary (6) Pericardial effusion ICD Code: I31.3 Diagnosis: Secondary (7) Cholangiocarcinoma ICD Code: C22.1 Diagnosis: Secondary Procedures None Brief History - From Admission Mrs. Ricardo is a 71 year old female. She is brought to the emergency department today secondary to experiencing a fall in which she sustained a right humerus fracture. The falls seem secondary to syncope. She reports that she got up to get some food out of the fridge felt dizzy and then fell. Orthopedic surgeon reviewed the images of fracture and inpatient repair is not planned acutely at this time. She is here for monitoring overnight and syncopal workup. Pain is controlled and seen in the ER. No other complaints. Her past history includes diabetes mellitus type 2, hypertension, A. fib, and a history of cholangiocarcinoma. Hyperlipidemia, anxiety, depression, and breast cancer in 2009 also exist. Past surgeries aren't able breast surgery in 2009, carpal tunnel in 1998, and low back surgery (fusion) in 1986. She is a smoker but without alcohol or drug abuse. CBC/BMP: 09/11/16 0709 09/11/16 0709 Significant Findings Laboratory Tests Test 09/10/16 09/11/16 08:06 07:09 White Blood Count 13.4 TH/MM3 (4.0-11.0) Platelet Count 140 TH/MM3 129 TH/MM3 (150-450) (150-450) Neutrophils (%) (Auto) 92.2 % 82.3 % (16.0-70.0) (16.0-70.0) Lymphocytes (%) (Auto) 4.5 % (9.0-44.0) Neutrophils # (Auto) 12.4 TH/MM3 (1.8-7.7) Lymphocytes # (Auto) 0.6 TH/MM3 (1.0-4.8) Estimat Glomerular Filtration 58 ML/MIN (>89) 73 ML/MIN (>89) Rate Random Glucose 167 MG/DL 117 MG/DL (74-106) (74-106) Troponin I LESS THAN 0.02 NG/ML (0.02-0.05) Albumin 3.3 GM/DL 3.1 GM/DL (3.4-5.0) (3.4-5.0) Hemoglobin 11.5 GM/DL (11.6-15.3) Imaging Last Impressions Head CT 09/10/16720 Signed Impressions: Service Date/Time: Saturday, September 10, 2016 08:13 - CONCLUSION: Disproportionate ventricular prominence relative to the degree of cortical atrophy. In the appropriate clinical setting, findings could be indicative of normal pressure hydrocephalus. Otherwise negative with no acute intracranial process, trauma or fracture. Rodrigo Granados MD Chest X-Ray 09/10/16720 Signed Impressions: Service Date/Time: Saturday, September 10, 2016 07:39 - CONCLUSION: No acute cardiopulmonary abnormality is identified. Donta Mcgowan MD Cervical Spine CT 09/10/16720 Signed Impressions: Service Date/Time: Saturday, September 10, 2016 08:13 - CONCLUSION: Negative trauma CT. Joseph Randle MD Wrist X-Ray 09/10/16 Signed Impressions: Service Date/Time: Saturday, September 10, 2016 07:40 - CONCLUSION: Undermineralized bones. No fracture is identified. Donta Mcgowan MD Upper Extremity CT 09/10/16 Signed Impressions: Service Date/Time: Saturday, September 10, 2016 11:11 - CONCLUSION: Right humeral head and neck fracture. Joseph Randle MD Shoulder X-Ray 09/10/16 Signed Impressions: Service Date/Time: Saturday, September 10, 2016 07:45 - CONCLUSION: Multipart mildly displaced fracture of the right proximal humerus. Donta Mcgowan MD Elbow X-Ray 09/10/16 Signed Impressions: Service Date/Time: Saturday, September 10, 2016 07:46 - CONCLUSION: No acute right elbow abnormality is identified on this two-view examination. If clinical suspicion remains for an acute elbow abnormality consider standard 4 view examination. Donta Mcgowan MD Carotid Artery Ultrasound 09/10/16 0000 Signed Impressions: Service Date/Time: Saturday, September 10, 2016 15:37 - CONCLUSION: Minimal plaque with no evidence of stenosis. Cystic nodule in the left lobe of the thyroid. Joseph Randle MD PE at Discharge GENERAL: NAD, A&Ox3 SKIN: Warm and dry. HEAD: Normocephalic. EYES: No scleral icterus. No injection or drainage. NECK: Supple, trachea midline. No JVD or lymphadenopathy. CARDIOVASCULAR: Regular rate and rhythm without murmurs, gallops, or rubs. RESPIRATORY: Breath sounds equal bilaterally. No accessory muscle use. GASTROINTESTINAL: Abdomen soft, non-tender, nondistended. MUSCULOSKELETAL: No cyanosis, or edema. Right arm in splint/sling. Hospital Course Mrs. Ricardo is a 71-year-old female. She had a syncopal episode at home and fractured her right humerus after falling. No other significant trauma. No head trauma. Syncopal workup was negative, with normal carotid Doppler ultrasounds are normal orthostatic blood pressure check. She is ambulated with PT and had evaluations from OT and PT. Home health PT and OT is recommended. Despite areas for improvement, she has demonstrated imbalance safe enough for discharge. She has a home who can help her. Her right arm is in a sling, orthopedic surgeons have determine this is not surgical case at this time. Medically stable for discharge today. As an outpatient she'll follow-up with her primary care physician and with orthopedics. Pt Condition on Discharge: Good Discharge Disposition: Disch w/ Home Health Serv Discharge Time: > 30 minutes Discharge Instructions DIET: Follow Instructions for: As Tolerated, No Restrictions Activities you can perform: Weight Bearing as Sienna Activities to Avoid: Lifting/Bending Follow up Referrals: Orthopedics - 2 Weeks with Wilfred Kelley MD PCP Follow-up - 1 Week New Medications: Walker/Folding Damian (Walker/Folding Damian) 1 Mis Mis 1 EA .ROUTE DIRECTED #1 EA Continued Medications: Aspirin (Aspirin) 81 Mg Tabdr 81 MG PO DAILY TAB Atorvastatin (Atorvastatin) 40 Mg Tab 40 MG PO HS Cholesterol Management #30 Ref 0 TAB Diltiazem ER 12 HR (Diltiazem ER 12 HR) 120 Mg Caper 120 MG PO DAILY NEB #60 Ref 0 CAP Glipizide (Glipizide) 5 Mg Tab 2.5 MG PO DAILY Take 30 minutes before a meal Blood Sugar Management #30 Ref 0 TAB Hydrocodone-Acetaminophen (Hydrocodone-Acetaminophen) 5-325 mg Tab 1 TAB PO Q4H PRN PAIN Ref 0 TAB Indomethacin (Indomethacin) 50 Mg Cap 50 MG PO TID Take with food, milk, or antacids to decrease stomach adverse effects. PRN PAIN SCALE 1 TO 10 Ref 0 CAP Levothyroxine (Levothyroxine) 25 Mcg Tab 25 MCG PO DAILY Thyroid #30 Ref 0 TAB Lisinopril-Hctz (Lisinopril-Hctz) 20-25 Mg Tab 1 TAB PO DAILY Blood Pressure Management #30 Ref 0 TAB Venlafaxine ER 24 HR (Venlafaxine ER 24 HR) 150 Mg Tab 150 MG PO DAILY #30 Ref 0 TAB Juarez Gandhi MD September 12, 2016 9:13 am
--- NOTE | 2016-09-12 11:05 | EC ---
Study Study Date:09/12/2016 STUDY CONCLUSIONS SUMMARY - Procedure narrative: Image quality was fair. Scanning was performed from the parasternal acoustic windows. Patient allowed for parasternal images then refused the rest of the study. - Left ventricle: The cavity size was normal. Images were inadequate for LV wall motion assessment. Unable to determine ejection fraction as patient did not allow for most of the study to be done. The study is not technically sufficient to allow evaluation of LV diastolic function. If LV function is below 40, please consider prescribing an ACEI or ARB or document rationale for non-use. PROCEDURE DATA STUDY STATUS: Elective. Procedure: Transthoracic echocardiography. Image quality was fair. Scanning was performed from the parasternal acoustic windows. Patient allowed for parasternal images then refused the rest of the study. Study completion: The patient tolerated the procedure well. Transthoracic echocardiography. M-mode, complete 2D, complete spectral Doppler, and color Doppler. Patient status: Inpatient. CARDIAC ANATOMY LEFT VENTRICLE: The cavity size was normal. Images were inadequate for LV wall motion assessment. Unable to determine ejection fraction as patient did not allow for most of the study to be done. The study is not technically sufficient to allow evaluation of LV diastolic function. AORTIC VALVE: Probably trileaflet; mildly thickened leaflets. Doppler: No significant regurgitation. Unable to determine if aortic stenosis as patient did not allow for full study to be done. MITRAL VALVE: The valve appears to be grossly normal. Doppler: There was no evidence for stenosis. No significant regurgitation. RIGHT VENTRICLE: Not visualized. PULMONIC VALVE: Not well visualized. Doppler: There was no evidence for stenosis. No significant regurgitation. TRICUSPID VALVE: The valve appears to be grossly normal. Doppler: There was no evidence for stenosis. Trace regurgitation. BASIC MEASUREMENTS ADULT NORMAL Left ventricle LV internal dimension, ED, chordal level, 43.7 mm 43-52 PLAX LV internal dimension, ES, chordal level, 33.5 mm 23-38 PLAX Fractional shortening, chordal level, PLAX *23 % >29 LV posterior wall thickness, ED 8.58 mm IVS/LVPW ratio, ED 1.06 <1.3 Ventricular septum Septal thickness, ED 9.07 mm Aortic valve Leaflet separation 21 mm 15-26 Left atrium Anterior-posterior dimension 31 mm Right ventricle RV internal dimension, ED, PLAX 23 mm 19-38 BASIC MEASUREMENTS ADULT NORMAL Aortic valve Leaflet separation 21 mm 15-26 Aorta Root diameter, ED 32 mm 20-37 DOPPLER MEASUREMENTS ADULT NORMAL Tricuspid valve Regurgitant peak velocity 168 cm/s Peak RV-RA gradient, S 11 mm Hg Maximal regurgitant velocity 168 cm/s LEGEND: Mean values are shown as u=mean value. Asterisk (*) patton values outside specified normal range. Prepared and signed by Angelo Garcia [id number]
== END 2016-09-12 10:20 | disposition home or self-care (01) ==
LOC: PHED 06:51 → PHEDA 11:17 → PH3A 12:27
PROVIDERS: ADMIT Hospitalist; ATTEND Hospitalist
DX: S42.211A Unspecified displaced fracture of surgical neck of right humerus, initial encounter for closed fracture (principal); R55 Syncope and collapse; I10 Essential (primary) hypertension; I48.0 Paroxysmal atrial fibrillation; R07.9 Chest pain, unspecified; I31.3 Pericardial effusion (noninflammatory); C22.1 Intrahepatic bile duct carcinoma; W19.XXXA Unspecified fall, initial encounter; Y92.009 Unspecified place in unspecified non-institutional (private) residence as the place of occurrence of the external cause; Z91.81 History of falling; E04.1 Nontoxic single thyroid nodule; E11.9 Type 2 diabetes mellitus without complications; E78.5 Hyperlipidemia, unspecified; E78.00 Pure hypercholesterolemia, unspecified; G89.29 Other chronic pain; M54.5 Low back pain; E03.9 Hypothyroidism, unspecified; F32.9 Major depressive disorder, single episode, unspecified; F41.9 Anxiety disorder, unspecified; F17.200 Nicotine dependence, unspecified, uncomplicated; Z85.3 Personal history of malignant neoplasm of breast; Z79.82 Long term (current) use of aspirin; Z98.1 Arthrodesis status; Z88.1 Allergy status to other antibiotic agents
CPT/HCPCS: 70450; 71010; 72125; 73030; 73070; 73110; 73200; 80053; 82948; 83735; 84484; 85025; 85610; 85730; 93005; 93306; 93880; 96374; 96375; 97162; 97167; 97530; 99285; G0378; G8987; G8988; J2270; J2405